=== PATIENT | female | born 1935 | race Caucasian/White ===

== ENCOUNTER 2016-06-24 12:13 | Inpatient (IN) | payer MEDICARE ==
--- NOTE | ~2016-06-24 | OP ---
Record Of Operation [facility] [address] [place]. [address] NAME: COLBY KEATING : 33 STATUS : ADM IN PAT#: [id number] AGE: 80 ADM/REG DATE : 06/24/16 MR#: [id number] REPORT SERV DATE: 06/26/16 DICTATED BY: VAIBHAV GARCIA DATE: 06/26/16 REPORT STATUS : Draft TRANSCRIBED BY: MODL DATE: 06/26/16 DATE OF PROCEDURE: 06/25/2016 PREOPERATIVE DIAGNOSIS: Severely comminuted right periprosthetic supracondylar femur fracture. POSTOPERATIVE DIAGNOSIS: Severely comminuted right periprosthetic supracondylar femur fracture. PROCEDURE: Right rotating hinge complex knee replacement. SURGEON: Pedrito Garcia M.D. SOLUTIONS ARCHITECT: See chart. DESCRIPTION OF PROCEDURE: The patient was taken to the operating room and placed supine on the table in normal fashion without incident. General anesthetic was induced per the anesthesiologist. The patient was carefully positioned, padded, prepped, and draped in normal sterile fashion. Right lower extremity exsanguinated, tourniquet inflated to 350. Sharp dissection was made through the old incision, extended proximally with electrocautery through the fat. Quad splitting approach done onto the anterior femur. Meticulous dissection was done to expose a severely comminuted fragment of supracondylar periprosthetic fracture includes splitting the bone partially right off the femoral component. There was not enough bone to allow any kind of meaningful reconstruction from a fracture standpoint and also I could not possibly save component to this standard revision. At this point, it was opted to resect this as severely fragmented portion and to cut the distal femur transversely to allow replacement with a distal femoral segmental replacing rotating hinge type prosthesis. The trial was laid down on the back table. Sequential reamers were used to lay 18 on the femur and tibia. Intramedullary guide was used for broaching. Proximal tibial cut was made. Trial components were assembled and gave excellent re-creation of leg length. The patella had not been resurfaced previously. This was cut with an oscillating saw, drilled with patella drill guide. With the trial patella in place, there was excellent patellar tracking. All surfaces were copiously irrigated with pulsatile lavage. The components were assembled at the back table. Premixed antibiotic cement was pressurized in a doughy phase on the tibia. Tibial component placed, impacted, and excess cement removed. Cement was pressurized in a portion of the femur and the femoral component was placed, impacted, and excess cement removed. The knee was brought out in extension on a trial spacer. The patella was irrigated and dried. Cement was pressurized on the patella. Patellar component placed, held with a clamp, and excess cement removed. Once all cement was hardened, the knee was taken range of motion. Further extruded cement was removed with a small osteotome. The actual insert was then placed, impacted, and the knee was closed in a layered fashion over medium ConstaVac drain superolaterally. The wound was dressed sterilely. The patient was awakened and taken to the postanesthesia care unit without incident. COMPLICATIONS: None. Record Of Operation [address] [place]. [address] NAME: COLBY KEATING : 33 STATUS : ADM IN [facility]#: [id number] AGE: 80 ADM/REG DATE : 06/24/16 MR#: [id number] REPORT SERV DATE: 06/26/16 DICTATED BY: VAIBHAV GARCIA DATE: 06/26/16 REPORT STATUS : Draft TRANSCRIBED BY: MODWood DATE: 06/26/16 SPECIMENS: None. ESTIMATED BLOOD LOSS: Trace. WTB/CAINL Pedrito Garcia M.D. / [id number] CC: Vaibhav Subramanian Jr, MD Richard Moody, M.D.
--- NOTE | ~2016-06-24 | HP ---
History And Physical [address] [place]. [address] NAME: COLBY KEATING : 33 STATUS : ADM IN PAT#: [id number] AGE: 80 ADM/REG DATE : 06/24/16 MR#: [id number] REPORT SERV DATE: 06/25/16 DICTATED BY: VAIBHAV NAVAS DATE: 06/25/16 REPORT STATUS : Draft TRANSCRIBED BY: MODL DATE: 06/25/16 DATE OF ADMISSION: 06/24/2016 CHIEF COMPLAINT: Right knee pain. HISTORY: 80-year-old female, status post right total knee arthroplasty elsewhere in 2002, who fell and landed on her knee with significant pain and injury to her knee, was brought here for further evaluation and treatment. ALLERGIES: PENICILLIN. MEDICATIONS: See chart. PAST MEDICAL HISTORY: Cataracts, hypertension, pulmonary fibrosis, history of recurrent pneumonia, pulmonary embolism in 2006 and 2008, spinal stenosis, cancer, endometriosis, diabetes, hyperparathyroidism. PAST SURGICAL HISTORY: Cholecystectomy in 1988, tonsillectomy at age 16, bilateral knee replacements in 2002, parathyroidectomy in 1996, D and C and hysteroscopy in 2010. SOCIAL HISTORY: No cigarettes, alcohol, or illicit drug use. FAMILY HISTORY: No anesthetic complications. REVIEW OF SYSTEMS: Per above. PHYSICAL EXAMINATION: GENERAL: She is alert and oriented x3, in no apparent distress. HEENT: Atraumatic, normocephalic. NECK: Supple. CHEST: Symmetric, nontender. LUNGS: Per AA evaluation. CV: Regular. ABDOMEN: Soft. No mass. EXTREMITIES: Decreased range of motion, severe pain, obvious deformity, right knee. Skin is intact. Compartment supple. 2+ pulses. NEURO: Sensorimotor without deficit. X-RAY: Severely comminuted right supracondylar periprosthetic femur fracture. ASSESSMENT: 1. Severely comminuted right periprosthetic femur fracture. 2. History of pulmonary embolism. PLAN: Complex right total knee arthroplasty. I do not think that there was enough bone History And Physical [address] [place]. [address] NAME: COLBY KEATING : 33 STATUS : ADM IN PAT#: [id number] AGE: 80 ADM/REG DATE : 06/24/16 MR#: [id number] REPORT SERV DATE: 06/25/16 DICTATED BY: VAIBHAV NAVAS DATE: 06/25/16 REPORT STATUS : Draft TRANSCRIBED BY: MODL DATE: 06/25/16 there to meaningfully fix this. I have recommended a segmental reconstruction. Discussed risks, benefits, etc, at length and we will do aggressive thromboembolic disease prophylaxis with her as well. WTB/MODL Pedrito Navas M.D. / [id number] CC: Vaibhav Subramanian Jr, MD Richard Moody, M.D.
--- NOTE | ~2016-06-24 | HP ---
History And Physical [place] [id number] [facility]. [address] NAME: COLBY KEATING : 33 STATUS : ADM IN [facility]#: [id number] AGE: 80 ADM/REG DATE : 06/24/16 MR#: [id number] REPORT SERV DATE: 06/25/16 DICTATED BY: LINDA SABA DATE: 06/24/16 REPORT STATUS : Draft TRANSCRIBED BY: MODWood DATE: 06/24/16 DATE OF ADMISSION: 06/24/2016 ATTENDING PHYSICIAN: Dr. Sanchez. REASON FOR ADMISSION: Fractured right femur and hypotension. HISTORY: This is an 80-year-old white female with obesity hypoventilation syndrome. She is on oxygen at home. She stood up from her chair and fell to the floor. She usually gets over the power lift and gets to a wheelchair to get around the house. Her mobility is extremely limited. She had pain in the right knee from a low fall. She did not hit her head. She does not want acute CT scan of her brain because she did not hit her head. She is symmetric neurologically now and the CT scan of the brain can be obviated. PAST MEDICAL HISTORY: She had cholecystectomy and hysterectomy in the past, bilateral knee joint replacements also as well. She has a history of hypertension, is followed by Dr. Reza Walter. HOME MEDICATIONS: Include the following: Tylenol with codeine 300/30 one p.o. three times a day, atorvastatin 20 mg p.o. at bedtime, vitamin D 50,000 units p.o. weekly, gabapentin 300 mg p.o. three times a day, metformin 500 mg p.o. b.i.d., metoprolol-XL 25 mg p.o. daily, multivitamin one a day, Torsemide 20 mg tablet one p.o. daily, valsartan 160 mg p.o. at bedtime, warfarin 1 mg on Wednesday and and 2 mg on other days, multivitamin one a day. ALLERGY: Penicillins. SOCIAL HISTORY: She lives in [facility]. She stays at home and takes care of her , who has Alzheimer's disease. She does not smoke or drink. She has five children, two of whom live locally. Her son is here with her helping her through the hospitalization. She does not smoke or drink. She does not get out to go to religion. FAMILY HISTORY: She had no brothers or sisters with diseases. No diseases run in the family. She does have a granddaughter with type 1 diabetes, however. REVIEW OF SYSTEMS: She has no headache or eye pain, double vision, nausea, vomiting, or diarrhea. No fits, seizures, convulsion, unilateral weakness, melena, hematemesis. Other than the pain in the right knee, has had no problems. She did not take her dose of antihypertensives yesterday. She has an elevated PaCO2 of 53 with a slightly depressed pH as well. History And Physical [address] [place]. [address] NAME: COLBY KEATING : 33 STATUS : ADM IN [facility]#: [id number] AGE: 80 ADM/REG DATE : 06/24/16 MR#: [id number] REPORT SERV DATE: 06/25/16 DICTATED BY: LINDA SABA DATE: 06/24/16 REPORT STATUS : Draft TRANSCRIBED BY: JOSÉ MIGUEL DATE: 06/24/16 No chest pain or shortness of breath. She does have dyspnea with exertion all the time. Son says that she has remarkable hypoxemia when off oxygen and try to ambulate. She has had some swelling of her legs. Her legs do not work well. She says she is almost immobile. She does not want to be resuscitated with ventilator nor with cardiac compressions, though she would take defibrillation and medication to avoid hemodynamic deterioration. The remainder of the review of systems is negative. PHYSICAL EXAMINATION: GENERAL: Morbidly obese white female, in no acute distress. Her blood pressure was 72 up to 94, respiratory rate 18, heart rate is 100 up to 124, afebrile. HEENT: EOMI. Sclerae are clear. Conjunctivae pink. NECK: No bruit, without any JVD. CHEST: Clear to A and P. HEART: Regular S1, S2 without murmur, gallop, or click. ABDOMEN: Soft, nontender. Bowel sounds positive. EXTREMITIES: Have trace edema. Lower extremities, large lower extremities. She speaks with a slightly gravelly voice. NEUROLOGIC: Sewing Supervisor is equal and symmetric bilaterally. Coordination is intact. She has no tremor. She does have pain in the right knee when moved. LYMPHATICS: Negative. BREASTS: Grossly without mass. SKIN: Without rash, ecchymosis, or bruising. LABORATORY DATA: Cortisol level was 44.8. Her ABG 7.33, PaCO2 of 54, PO2 of 97 and on 28% FiO2. Procalcitonin less than 0.05. Chest portable done shows stable cardiomegaly and pulmonary hypertension with low volumes and atelectasis bilaterally. Troponin 1 less than 0.02. Urinalysis shows specific gravity 1.011, pH 5, urobilinogen less than 2.0, leukocyte esterase, moderate 25 white cells per high-powered field, few bacteria. Lactate 0.7. X-ray, there is a comminuted fracture of the distal right femoral condyle adjacent to the prosthesis. Right distal femoral metaphyseal above the patient's femoral component fracture. The pelvis shows no fracture dislocation. Hemoglobin was 9.1, hematocrit 29.1. The electrolyte profile shows a sodium 145, potassium 5.0, creatinine 1.1 with a BUN of 81. Her glucose was 138, calcium 9.9. Hemoglobin 9, hematocrit 28.9, white count 9.0, platelets 256,000, INR 1.8. ASSESSMENT: 1. Hypotension. Resuscitating with IV fluid. BUN 81 with a creatinine modest elevation suggests prerenal azotemia. She has not drunk anything since 6:30 this morning. IV fluid resuscitation will continue. We will add ProAmatine for the first 24 hours. 2. History of hypertension, on medications. We will hold them. 3. Diabetes type 2, fairly well controlled. History And Physical [address] [address] NAME: COLBY KEATING : 33 STATUS : ADM IN [facility]#: [id number] AGE: 80 ADM/REG DATE : 06/24/16 MR#: [id number] REPORT SERV DATE: 06/25/16 DICTATED BY: LINDA SABA DATE: 06/24/16 REPORT STATUS : Draft TRANSCRIBED BY: JOSÉ MIGUEL DATE: 06/24/16 4. Coagulopathy. 5. Morbid obesity. 6. Obesity hypoventilation syndrome. 7. Hoarseness. This has been going on for the last several months. We will check TSH. 8. Dehydration. 9. Urinary tract infection. 10.Fracture, right distal femur at the lateral epicondyle. 11.Decubitus ulcer from being bed bound. Her home health nurse is watching this. Had had bleeding that has resolved. 12.Chronic hypoxemia, on oxygen at home without breathing treatments. PLAN: IV fluid resuscitation. ProAmatine. Repeat the BMP in the morning. She does not want to get a CT scan of her brain. She did not fall and hit her head. I agree with her being neurologically normal without headache and no history of head trauma that we can omit the order. DB/MODL Linda Saab M.D. / [id number] CC: Vaibhav Subramanian Jr, MD Richard Moody, M.D.
--- NOTE | ~2016-06-24 | DS ---
Discharge Summary [facility] [address] [place]. [address] NAME: COLBY KEATING : 33 STATUS : DIS IN PAT#: [id number] AGE: 80 ADM/REG DATE : 06/24/16 MR#: [id number] REPORT SERV DATE: 06/30/16 DICTATED BY: PHIL LONDON DATE: 06/29/16 REPORT STATUS : Draft TRANSCRIBED BY: MODL DATE: 06/29/16 ADMISSION DATE: 06/24/2016 DISCHARGE DATE: 06/29/2016 HOSPITAL COURSE: An 80-year-old female with history of obesity hypoventilation syndrome, possible pulmonary fibrosis is on 2 L home oxygen at home, known past history of cholecystectomy, hysterectomy, osteoarthritis, hyperlipidemia, diabetes, hypertension, lymphedema. The patient came in for the fractured right femur with initial hypotension. The patient was volume resuscitated. She was seen by Dr. Navas to have a severely comminuted right periprosthetic supracondylar femur fracture. Had a right rotating hinge complex knee replacement on 06/25/2016. The patient has done well postoperatively and was sent to [address] [place] [address], had acute blood loss anemia expected postoperatively, hypertension, diabetes. Noted to have a sacral decubitus ulcer. Wound Care was consulted. Turn every two hours. The patient has some decreased motivation in participating with turning. Seen to have a PE history in [id number]. As a result, the patient had IVC filter placed on 06/26/2016, maintained on Coumadin. The patient's blood cultures no growth to date. Did have urine culture that did grow out Enterobacter, we will get 6 more days. Has a Flores catheter at this time. Had to receive 2 units of blood as well for acute blood loss anemia. The patient regarding her Flores catheter, retained bladder, we will try bladder wean over a week at the facility, if fails needs to go see a urologist, may need a cystoscopy given recurrent UTI concerns. We will schedule outpatient PFT in four to eight weeks for pulmonary fibrosis. Change Flores every week until her Flores is out. Do the same wound care orders as here to be done at the facility including q.2 turn. Follow with ortho in three to five weeks. Follow up PCP in two weeks. Discharge to facility via ambulance on oxygen. DISCHARGE MEDICATIONS: Lipitor 20 p.o. daily as well as Omnicef 300 p.o. b.i.d. for 6 more days, Colace 100 p.o. b.i.d., ergocalciferol 50,000 units p.o. weekly, iron sulfate 300 p.o. t.i.d. with meals, gabapentin 300 p.o. t.i.d., multivitamin tablet p.o. daily, metoprolol tartrate 12.5 p.o. b.i.d. as well as Spiriva 18 mcg capsule inhaled daily, Coumadin sliding scale, Lortab 5/325 p.o. q.6 p.r.n. pain, albuterol p.r.n., metformin, Demadex 10 p.o. daily. CONSULTS: Ortho. PROCEDURE: See above. Concerned about possible primary lung condition in addition to pulmonary fibrosis given secondhand smoke exposure with a PFT as an outpatient, I went ahead and started her on Spiriva. All questions were answered. It took well over 30 minutes to do. The patient needs to continue with obesity weight loss reduction. DIAGNOSES: Enterobacter urinary tract infection, right total knee arthroplasty revision, acute blood loss anemia, diabetes, hypertension, history of PTE, morbid obesity, obesity hypoventilation syndrome, questionable chronic obstructive pulmonary disease. Discharge Summary [address] [address] NAME: COLBY KEATING : 33 STATUS : DIS IN PAT#: [id number] AGE: 80 ADM/REG DATE : 06/24/16 MR#: [id number] REPORT SERV DATE: 06/30/16 DICTATED BY: PHIL LONDON DATE: 06/29/16 REPORT STATUS : Draft TRANSCRIBED BY: MODL DATE: 06/29/16 DICTATED BY: Phil London DO WST/CAINL Phil London DO / [id number] CC: DO Reza Morales M.D.
[2016-06-24 11:11] LABS: BASOPHILS 0.2 %; BASOPHILS ABSOLUTE 0.02 10/3/uL (0.0-0.16); EOSINOPHILS 0.9 %; EOSINOPHILS ABSOLUTE 0.08 10/3/uL (0.0-0.53); HEMATOCRIT 28.9 % (36.0-48.0); IMMATURE GRANULOCYTES 0.2 %; IMMATURE GRANULOCYTES ABSOLUTE 0.02 10/3/uL (0.0-0.11); LYMPHOCYTES 19.4 %; LYMPHOCYTES ABSOLUTE 1.74 10/3/uL (0.67-4.30); MEAN CORPUS HGB CONC 31.1 g/dL (32.0-36.0); MEAN PLATELET VOLUME 9.7 fL (9.2-13.0); MONOCYTES 9.2 %; MONOCYTES ABSOLUTE 0.82 10/3/uL (0.21-1.20); NEUTROPHILS 70.1 %; NEUTROPHILS ABSOLUTE 6.27 10/3/uL (2.02-8.40); PLATELET COUNT 256 10/3/uL (150-400); RBC DISTRIBUTION WIDTH 16.1 % (12.0-16.0); RED CELL COUNT 3.22 10/6/uL (4.0-5.6)
[2016-06-24 11:15] LABS: ER CBC TAT 0 Hrs 09 Mins; MANUAL DIFF NO %; MEAN CORPUSCULAR VOLUME 89.8 fL (80-100)
[2016-06-24 11:22] LABS: INTERNATIONAL NORMAL RATI 1.8 UNITS (-)
[2016-06-24 11:24] LABS: CALCIUM, SERUM 9.9 MG/DL (8.5-10.4); CHLORIDE, SERUM 105 MMOL/L (96-112); CO2 (CARBON DIOXIDE) 38 MMOL/L (24-34); PROTIME (NOT ORD) 20.6 SEC (12.0-14.5); SODIUM, SERUM 145 MMOL/L (135-148)
[2016-06-24 11:25] LABS: BUN (BLOOD UREA NITROGEN) 81 MG/DL (6-23); CREATININE 1.11 MG/DL (0.55-1.02); GFR AFRICAN AMERICAN 54 ML/MIN (>=60); GFR NON AFRICAN AMERICAN 46 ML/MIN (>=60); GLUCOSE, SERUM 138 MG/DL (60-99)
[~2016-06-24 12:13] MED LIST: C1 PO; C2 PO; CALTRA600D PO; CENTRUM TAB1 TAB PO; COUMADIN3 MG PO; DEMA10T PO; DIOV160 PO; DIOVAN HC1 PO; GLUCPH PO; ICAPS AREDS SO1 EACH PO; KLOR-CON M2020 MEQ PO; LOP25 PO; MAXIMUM D3 PO; MEG40 PO; NEUR300 PO; T3 PO; THERGRANM PO; TOPXL25 PO
[2016-06-24 12:51] LABS: HEMATOCRIT 29.1 % (36.0-48.0); HEMOGLOBIN 9.1 g/dL (12.0-16.0)
[2016-06-24] MEDS ORDERED: TOPXL25 PO (13:00)
[2016-06-24] MEDS ORDERED: T3 PO (13:00)
[2016-06-24] MEDS ORDERED: NEUR300 PO (13:07)
[2016-06-24] MEDS ORDERED: C2 PO (13:08)
[2016-06-24] MEDS ORDERED: C1 PO (13:09)
[2016-06-24] MEDS ORDERED: GLUCPH PO (13:09)
[2016-06-24] MEDS ORDERED: DIOV160 PO (13:10)
[2016-06-24] MEDS ORDERED: LIPITOR20 PO (13:10)
[2016-06-24] MEDS ORDERED: DEMA20 PO (13:10)
[2016-06-24] MEDS ORDERED: CENTRUM PO (13:11)
[2016-06-24] MEDS ORDERED: VITD PO (13:11)
[2016-06-24] MEDS ORDERED: ICAPS AREDS SO1 EACH PO (13:11)
[2016-06-24 14:23] LABS: LACTATE 0.7 MMOL/L (0.3-2.4)
[2016-06-24 14:35] LABS: ASCORBIC ACID (UR NOT ORDER) 40 (NEG); BILIRUBIN, URINE NEGATIVE (NEG); ER URINALYSIS TAT 0 Hrs 20 Mins; KETONE, URINE NEGATIVE (NEG); LEUKOCYTE ESTERASE(NOT OR MOD (NEG); NITRITE (URINE) NEG (NEG); WBC (NOT ORDERED) (RFLEX) 25 (0-5)
[2016-06-24 14:49] LABS: TROPONIN I <0.02 NG/ML (<0.05)
[2016-06-24 15:14] LABS: ALLENS TEST Pos; BE (BASE EXCESS) 1.6 MEQ/L (0 +/- 2.5); CARBOXYHEMOGLOBIN 1.4 % (0-3); DEVICE NC; HEMOBLOGIN CONTENT 8.6 G/DL (12-16); INSTRUMENT SERIAL # 8087; METHEMOGLOBIN 0.3 % (0-3); O2 CONTENT 11.7 VOL% (18-24); PCO2 (CO2 TENSION) 54 MMHG (35-45); PO2 (O2 TENSION) 97 MMHG (79-93); SAMPLE Arterial; pH 7.33 (7.37-7.43)
[2016-06-24 21:54] LABS: FREE T4 1.18 NG/DL (0.76-1.46)
[2016-06-24 21:58] LABS: ULTRASENSITIVE TSH 0.486 MCIU/ML (0.358-3.740)
[2016-06-25 07:13] LABS: INTERNATIONAL NORMAL RATI 2.1 UNITS (-); PROTIME (NOT ORD) 23.4 SEC (12.0-14.5)
[2016-06-25 07:26] LABS: CALCIUM, SERUM 9.4 MG/DL (8.5-10.4); CHLORIDE, SERUM 109 MMOL/L (96-112); CREATININE 0.77 MG/DL (0.55-1.02); GFR AFRICAN AMERICAN 83 ML/MIN (>=60); GFR NON AFRICAN AMERICAN 72 ML/MIN (>=60); GLUCOSE, SERUM 138 MG/DL (60-99); SODIUM, SERUM 144 MMOL/L (135-148)
[2016-06-25 07:27] LABS: BUN (BLOOD UREA NITROGEN) 54 MG/DL (6-23); CO2 (CARBON DIOXIDE) 33 MMOL/L (24-34)
[2016-06-26 04:35] LABS: BE (BASE EXCESS) 3.5 MEQ/L (0 +/- 2.5); CARBOXYHEMOGLOBIN 1.4 % (0-3); HCO3 (ACTUAL BICARBONATE) 29.5 MEQ/L (23-27); HEMOBLOGIN CONTENT 6.9 G/DL (12-16); INSTRUMENT SERIAL # 35151; METHEMOGLOBIN 0.6 % (0-3); O2 CONTENT 9.5 VOL% (18-24); PCO2 (CO2 TENSION) 55 MMHG (35-45); PO2 (O2 TENSION) 104 MMHG (79-93); pH 7.35 (7.37-7.43)
[2016-06-26 04:36] LABS: ALLENS TEST Pos; DEVICE NC; OPERATOR ID 13415; SAMPLE Arterial
[2016-06-26 05:27] LABS: BASOPHILS 0.1 %; BASOPHILS ABSOLUTE 0.01 10/3/uL (0.0-0.16); EOSINOPHILS 0 %; IMMATURE GRANULOCYTES 0.4 %; IMMATURE GRANULOCYTES ABSOLUTE 0.04 10/3/uL (0.0-0.11); INTERNATIONAL NORMAL RATI 2.4 UNITS (-); LYMPHOCYTES 9.3 %; LYMPHOCYTES ABSOLUTE 0.94 10/3/uL (0.67-4.30); MEAN CORPUS HGB CONC 30.7 g/dL (32.0-36.0); MEAN CORPUSCULAR HEMOGLOB 27.6 pg (26.0-34.0); MEAN CORPUSCULAR VOLUME 89.7 fL (80-100); MEAN PLATELET VOLUME 9.8 fL (9.2-13.0); MONOCYTES 4.6 %; MONOCYTES ABSOLUTE 0.47 10/3/uL (0.21-1.20); NEUTROPHILS 85.6 %; NEUTROPHILS ABSOLUTE 8.66 10/3/uL (2.02-8.40); PLATELET COUNT 244 10/3/uL (150-400); PROTIME (NOT ORD) 25.6 SEC (12.0-14.5); RBC DISTRIBUTION WIDTH 16.3 % (12.0-16.0); WHITE BLOOD CELLS 10.1 10/3/uL (4.5-10.5)
[2016-06-26 05:29] LABS: HEMATOCRIT 21.8 % (36.0-48.0); HEMOGLOBIN 6.7 g/dL (12.0-16.0); RED CELL COUNT 2.43 10/6/uL (4.0-5.6)
[2016-06-26 05:30] LABS: MANUAL DIFF NO %
[2016-06-26 05:37] LABS: BUN (BLOOD UREA NITROGEN) 43 MG/DL (6-23); CALCIUM, SERUM 9.8 MG/DL (8.5-10.4); CHLORIDE, SERUM 111 MMOL/L (96-112); CO2 (CARBON DIOXIDE) 31 MMOL/L (24-34); GFR AFRICAN AMERICAN 61 ML/MIN (>=60); GFR NON AFRICAN AMERICAN 52 ML/MIN (>=60); GLUCOSE, SERUM 162 MG/DL (60-99); POTASSIUM, SERUM 5.5 MMOL/L (3.5-5.3); SODIUM, SERUM 146 MMOL/L (135-148)
[2016-06-26 17:10] LABS: BASOPHILS 0.1 %; BASOPHILS ABSOLUTE 0.01 10/3/uL (0.0-0.16); EOSINOPHILS 0.1 %; EOSINOPHILS ABSOLUTE 0.01 10/3/uL (0.0-0.53); IMMATURE GRANULOCYTES 0.2 %; IMMATURE GRANULOCYTES ABSOLUTE 0.02 10/3/uL (0.0-0.11); LYMPHOCYTES 16.6 %; LYMPHOCYTES ABSOLUTE 1.74 10/3/uL (0.67-4.30); MEAN CORPUS HGB CONC 31.3 g/dL (32.0-36.0); MEAN CORPUSCULAR HEMOGLOB 27.9 pg (26.0-34.0); MEAN PLATELET VOLUME 9.3 fL (9.2-13.0); MONOCYTES 10.4 %; MONOCYTES ABSOLUTE 1.09 10/3/uL (0.21-1.20); NEUTROPHILS 72.6 %; NEUTROPHILS ABSOLUTE 7.59 10/3/uL (2.02-8.40); PLATELET COUNT 235 10/3/uL (150-400); RBC DISTRIBUTION WIDTH 16.3 % (12.0-16.0); RED CELL COUNT 2.19 10/6/uL (4.0-5.6); WHITE BLOOD CELLS 10.5 10/3/uL (4.5-10.5)
[2016-06-26 17:11] LABS: HEMATOCRIT 19.5 % (36.0-48.0); HEMOGLOBIN 6.1 g/dL (12.0-16.0)
[2016-06-26 17:12] LABS: MANUAL DIFF NO %
[2016-06-26 17:21] LABS: BUN (BLOOD UREA NITROGEN) 41 MG/DL (6-23); CALCIUM, SERUM 9.6 MG/DL (8.5-10.4); CHLORIDE, SERUM 110 MMOL/L (96-112); CO2 (CARBON DIOXIDE) 32 MMOL/L (24-34); CREATININE 1.04 MG/DL (0.55-1.02); GFR AFRICAN AMERICAN 58 ML/MIN (>=60); GFR NON AFRICAN AMERICAN 50 ML/MIN (>=60); GLUCOSE, SERUM 123 MG/DL (60-99); POTASSIUM, SERUM 4.9 MMOL/L (3.5-5.3); SODIUM, SERUM 144 MMOL/L (135-148)
[2016-06-27 08:25] LABS: BASOPHILS 0.3 %; BASOPHILS ABSOLUTE 0.02 10/3/uL (0.0-0.16); EOSINOPHILS ABSOLUTE 0.14 10/3/uL (0.0-0.53); IMMATURE GRANULOCYTES 0.3 %; IMMATURE GRANULOCYTES ABSOLUTE 0.02 10/3/uL (0.0-0.11); LYMPHOCYTES 26.1 %; LYMPHOCYTES ABSOLUTE 1.83 10/3/uL (0.67-4.30); MEAN CORPUSCULAR HEMOGLOB 28.5 pg (26.0-34.0); MEAN PLATELET VOLUME 9.1 fL (9.2-13.0); MONOCYTES 10.8 %; MONOCYTES ABSOLUTE 0.76 10/3/uL (0.21-1.20); NEUTROPHILS 60.5 %; NEUTROPHILS ABSOLUTE 4.25 10/3/uL (2.02-8.40); PLATELET COUNT 212 10/3/uL (150-400); RBC DISTRIBUTION WIDTH 16.8 % (12.0-16.0)
[2016-06-27 08:27] LABS: HEMATOCRIT 22.9 % (36.0-48.0); HEMOGLOBIN 7.7 g/dL (12.0-16.0); MANUAL DIFF NO %; MEAN CORPUS HGB CONC 33.6 g/dL (32.0-36.0); MEAN CORPUSCULAR VOLUME 84.8 fL (80-100)
[2016-06-27 08:33] LABS: INTERNATIONAL NORMAL RATI 3.4 UNITS (-)
[2016-06-27 08:38] LABS: BUN (BLOOD UREA NITROGEN) 46 MG/DL (6-23); CALCIUM, SERUM 9.4 MG/DL (8.5-10.4); CHLORIDE, SERUM 108 MMOL/L (96-112); CO2 (CARBON DIOXIDE) 31 MMOL/L (24-34); CREATININE 1.16 MG/DL (0.55-1.02); GFR AFRICAN AMERICAN 51 ML/MIN (>=60); GFR NON AFRICAN AMERICAN 44 ML/MIN (>=60); GLUCOSE, SERUM 129 MG/DL (60-99); POTASSIUM, SERUM 4.8 MMOL/L (3.5-5.3); SODIUM, SERUM 142 MMOL/L (135-148)
[2016-06-27 09:05] LABS: PROTIME (NOT ORD) 34.4 SEC (12.0-14.5)
[2016-06-28 05:50] LABS: BASOPHILS 0.5 %; BASOPHILS ABSOLUTE 0.03 10/3/uL (0.0-0.16); EOSINOPHILS 2.2 %; EOSINOPHILS ABSOLUTE 0.14 10/3/uL (0.0-0.53); HEMATOCRIT 23.3 % (36.0-48.0); HEMOGLOBIN 7.7 g/dL (12.0-16.0); IMMATURE GRANULOCYTES 0.6 %; IMMATURE GRANULOCYTES ABSOLUTE 0.04 10/3/uL (0.0-0.11); LYMPHOCYTES ABSOLUTE 1.86 10/3/uL (0.67-4.30); MEAN CORPUSCULAR HEMOGLOB 28.2 pg (26.0-34.0); MEAN CORPUSCULAR VOLUME 85.3 fL (80-100); MEAN PLATELET VOLUME 9.4 fL (9.2-13.0); MONOCYTES 12.2 %; MONOCYTES ABSOLUTE 0.78 10/3/uL (0.21-1.20); NEUTROPHILS 55.5 %; NEUTROPHILS ABSOLUTE 3.56 10/3/uL (2.02-8.40); PLATELET COUNT 216 10/3/uL (150-400); RBC DISTRIBUTION WIDTH 16.2 % (12.0-16.0); RED CELL COUNT 2.73 10/6/uL (4.0-5.6); WHITE BLOOD CELLS 6.4 10/3/uL (4.5-10.5)
[2016-06-28 05:53] LABS: MANUAL DIFF NO %
[2016-06-28 06:01] LABS: INTERNATIONAL NORMAL RATI 2.9 UNITS (-); PROTIME (NOT ORD) 30.4 SEC (12.0-14.5)
[2016-06-28 06:12] LABS: BUN (BLOOD UREA NITROGEN) 42 MG/DL (6-23); CALCIUM, SERUM 9.7 MG/DL (8.5-10.4); CHLORIDE, SERUM 108 MMOL/L (96-112); CO2 (CARBON DIOXIDE) 30 MMOL/L (24-34); CREATININE 0.97 MG/DL (0.55-1.02); GFR AFRICAN AMERICAN 63 ML/MIN (>=60); GFR NON AFRICAN AMERICAN 54 ML/MIN (>=60); GLUCOSE, SERUM 123 MG/DL (60-99); PHOSPHORUS, SERUM 1.9 MG/DL (2.5-4.5); SODIUM, SERUM 144 MMOL/L (135-148)
[2016-06-29 07:04] LABS: BASOPHILS 0.5 %; BASOPHILS ABSOLUTE 0.04 10/3/uL (0.0-0.16); EOSINOPHILS 2.6 %; EOSINOPHILS ABSOLUTE 0.19 10/3/uL (0.0-0.53); IMMATURE GRANULOCYTES 0.8 %; IMMATURE GRANULOCYTES ABSOLUTE 0.06 10/3/uL (0.0-0.11); LYMPHOCYTES 23.7 %; LYMPHOCYTES ABSOLUTE 1.74 10/3/uL (0.67-4.30); MEAN CORPUSCULAR HEMOGLOB 28.5 pg (26.0-34.0); MEAN PLATELET VOLUME 9.3 fL (9.2-13.0); MONOCYTES 11.7 %; MONOCYTES ABSOLUTE 0.86 10/3/uL (0.21-1.20); NEUTROPHILS 60.7 %; NEUTROPHILS ABSOLUTE 4.44 10/3/uL (2.02-8.40); PLATELET COUNT 228 10/3/uL (150-400); RED CELL COUNT 2.81 10/6/uL (4.0-5.6); WHITE BLOOD CELLS 7.3 10/3/uL (4.5-10.5)
[2016-06-29 07:05] LABS: MANUAL DIFF NO %
[2016-06-29 07:12] LABS: INTERNATIONAL NORMAL RATI 2.5 UNITS (-); PROTIME (NOT ORD) 26.6 SEC (12.0-14.5)
[2016-06-29 07:20] LABS: BUN (BLOOD UREA NITROGEN) 24 MG/DL (6-23); CALCIUM, SERUM 9.6 MG/DL (8.5-10.4); CHLORIDE, SERUM 109 MMOL/L (96-112); CO2 (CARBON DIOXIDE) 32 MMOL/L (24-34); CREATININE 0.72 MG/DL (0.55-1.02); GFR AFRICAN AMERICAN 90 ML/MIN (>=60); GFR NON AFRICAN AMERICAN 78 ML/MIN (>=60); GLUCOSE, SERUM 128 MG/DL (60-99); PHOSPHORUS, SERUM 2.2 MG/DL (2.5-4.5); POTASSIUM, SERUM 4.5 MMOL/L (3.5-5.3); SODIUM, SERUM 143 MMOL/L (135-148)
== END 2016-06-29 17:02 | DRG 467 ==
LOC: ER 12:13 → 5NO 16:43 → 1SO 06-26 18:45
PROVIDERS: Hospitalist; Internal Medicine; Nurse Practitioner; Specialist
PROC: 0SRT0J9 Replacement of Right Knee Joint, Femoral Surface with Synthetic Substitute, Cemented, Open Approach (ICD-10-PCS; 2016-06-25)
PROC: 3E0T3CZ (ICD-10-PCS; 2016-06-25)
PROC: 0SPT0JZ Removal of Synthetic Substitute from Right Knee Joint, Femoral Surface, Open Approach (ICD-10-PCS; principal; 2016-06-25 19:45)
PROC: 06H03DZ Insertion of Intraluminal Device into Inferior Vena Cava, Percutaneous Approach (ICD-10-PCS; 2016-06-26)
PROC: 30233N1 Transfusion of Nonautologous Red Blood Cells into Peripheral Vein, Percutaneous Approach (ICD-10-PCS; 2016-06-26)
DX: M97.11XA Periprosthetic fracture around internal prosthetic right knee joint, initial encounter (principal); D62 Acute posthemorrhagic anemia; N17.9 Acute kidney failure, unspecified; J96.11 Chronic respiratory failure with hypoxia; N39.0 Urinary tract infection, site not specified; E66.2 Morbid (severe) obesity with alveolar hypoventilation; I47.1 Supraventricular tachycardia; Z68.41 Body mass index [BMI] 40.0-44.9, adult; Z99.81 Dependence on supplemental oxygen; L89.151 Pressure ulcer of sacral region, stage 1; I95.9 Hypotension, unspecified; J84.10 Pulmonary fibrosis, unspecified; E86.0 Dehydration; I10 Essential (primary) hypertension; B96.89 Other specified bacterial agents as the cause of diseases classified elsewhere; G62.9 Polyneuropathy, unspecified; E87.5 Hyperkalemia; G89.29 Other chronic pain; E78.5 Hyperlipidemia, unspecified; E11.9 Type 2 diabetes mellitus without complications; W18.30XA Fall on same level, unspecified, initial encounter; Z79.01 Long term (current) use of anticoagulants; Z79.84 Long term (current) use of oral hypoglycemic drugs; Z86.711 Personal history of pulmonary embolism; Z90.49 Acquired absence of other specified parts of digestive tract; Z96.653 Presence of artificial knee joint, bilateral; Z90.710 Acquired absence of both cervix and uterus; Z87.01 Personal history of pneumonia (recurrent); Z88.0 Allergy status to penicillin
CPT/HCPCS: 36415; 36600; 37191; 70450; 71010; 72170; 73552-RT; 73560-LT; 73590-RT; 80048; 81001; 82533; 82805; 82962; 83605; 83735; 84100; 84145; 84439; 84443; 84484; 85014; 85018; 85025; 85610; 86850; 86900; 86901; 86920; 87040; 87077; 87086; 87186; 87641; 88300; 88304; 88311; 93005; 94640; 96374; 97110-GP; 97162-GP; 97167-GO; 97530-GO; 97530-GP; 99152; 99291; A9270-GY; C1769; C1776; C1880; G8978-CL-GP; G8979-CL-GP; G8980-CL-GP; G8987-CL-GO; G8988-CK-GO; J0456; J0690; J1170; J1750; J1885; J1940; J2250; J2270; J2274; J2370; J2405; J2710; J2795; J2916; J3010; P9016